=== PATIENT | male | born 1940 | race Hispanic/Latino ===

== ENCOUNTER 2017-11-17 21:25 | Inpatient (IN) | payer MEDICARE ==
[2017-11-17] MEDS ORDERED: ATROVENT IH ONE ×2 (21:44→21:58)
[2017-11-17] MEDS ORDERED: XOPENEX IH ONE ×2 (21:44→21:58)
[2017-11-17] MEDS ORDERED: NACL 0.9% 500 ML 500 ML IV ONE (21:46)
[2017-11-17] MEDS ORDERED: TORADOL IV ONE (21:57)
[2017-11-17] MEDS ORDERED: MAGNESIUM SULFATE 2GM/50ML 2 GM/50 ML BAG IV ONE (21:57)
[2017-11-17 22:09] LABS: Basophils # (Auto) 0.1 K/mm3 (0.0-0.1); Basophils % (Auto) 0.3 % (0.0-1.8); Eosinophils # (Auto) 0.1 K/mm3 (0.0-0.4); Eosinophils % (Auto) 0.5 % (0.0-4.3); Hemoglobin 13.7 gm/dl (11.8-15.2); Lymphocytes # (Auto) 1.2 K/mm3 (1.2-5.4); Lymphocytes % (Auto) 7.7 % (13.4-35.0); Monocytes # (Auto) 0.7 K/mm3 (0.0-0.8); Monocytes % (Auto) 4.8 % (0.0-7.3)
[2017-11-17] MEDS ORDERED: NACL 0.9% 1000 ML IV ONE (22:15)
[2017-11-17 22:20] LABS: INR 2.05 (0.87-1.13)
[2017-11-17 22:24] LABS: Alanine Aminotransferase 15 units/L (7-56); Albumin 3.7 g/dL (3.9-5); BUN/Creatinine Ratio 25; Blood Urea Nitrogen 15 mg/dL (9-20); Hemolysis Index 12
--- NOTE | 2017-11-17 22:27 | XRay Report ---
FINAL REPORT EXAM: XR ABD SERIES W CXR 1V HISTORY: MANA, WHEEZING, Sepsis TECHNIQUE: Frontal chest x-ray. Supine and upright views of abdomen. PRIORS: None. FINDINGS: Chest: No evidence of acute cardiopulmonary disease. Abdomen: Patient body habitus and difficulty breathing limit examination somewhat. Nonspecific bowel gas pattern without features suggestive of mechanical obstruction. No apparent pneumoperitoneum. No abnormal calcifications. Degenerative changes in the bilateral hip joints partially visualized. Remainder of visualized axial skeleton grossly unremarkable. IMPRESSION: 1. Nonspecific bowel gas pattern, which may represent adynamic ileus. Followup may be warranted.
[2017-11-17 22:30] LABS: Hematocrit 42.3 % (35.5-45.6); Mean Corpuscular HGB Conc 32 % (32-34); Mean Corpuscular Hemoglobin 29 pg (28-32); Mean Corpuscular Volume 89 fl (84-94); Platelet Count 380 K/mm3 (140-440); Red Blood Count 4.75 M/mm3 (3.65-5.03); Red Cell Distribution Width 14.5 % (13.2-15.2)
--- NOTE | 2017-11-17 22:32 | Emergency Department Report ---
ED Abdominal Pain HPI - General Chief Complaint: Dyspnea/Respdistress Stated Complaint: MANA Time Seen by Provider: 11/17/17 21:49 Source: patient, EMS Mode of arrival: Stretcher Limitations: Other - History of Present Illness Initial Comments: 77-year-old male with a past medical history of COPD (2 L home oxygen), questionable CHF, hypertension, previous PE currently on Coumadin and is also complaining of no bowel movement 2 days. He took MiraLAX without a specific complaints of right upper quadrant/lower chest pain radiating to the back since yesterday. It is intermittent with no aggravating or alleviating factors and moderate in intensity. Patient also complains of chronic hemorrhoids without reports of bleeding. Tonight patient developed wheezing and shortness breath. Low-grade temperature and tachycardia noted upon arrival. Patient denies fever at home, dysuria, or cough. PMD: [facility] affiliated patient apparently had an outpatient noncontrast CT of the chest last week evaluate to evaluate his pulmonary nodules. - Related Data Home Medications Medication Instructions Recorded Confirmed Last Taken ALBUTEROL Inhaler [Proair] 2 puff IH QID PRN 11/17/17 11/17/17 Unknown Aspirin [Aspirin BABY CHEW TAB] 162 mg PO QDAY 11/17/17 11/17/17 Unknown AtorvaSTATin [Lipitor] 20 mg PO QHS 11/17/17 11/17/17 Unknown Bethanechol [Urecholine] 25 mg PO Q8HR 11/17/17 11/17/17 Unknown Carvedilol [Coreg] 3.125 mg PO BID 11/17/17 11/17/17 Unknown Finasteride [Proscar] 5 mg PO QDAY 11/17/17 11/17/17 Unknown Fluticasone/Salmeterol [Advair 1 puff INHALATION BID 11/17/17 11/17/17 Unknown 500-50 Diskus] Furosemide [Lasix] 40 mg PO DAILY 11/17/17 11/17/17 Unknown Latanoprost [Xalatan] 2.5 ml OS DAILY 11/17/17 11/17/17 Unknown Linaclotide [Linzess] 290 mcg PO QDAY 11/17/17 11/17/17 Unknown Montelukast [Singulair] 10 mg PO QPM 11/17/17 11/17/17 Unknown Tamsulosin [Flomax] 0.4 mg PO QDAY 11/17/17 11/17/17 Unknown Tiotropium [place] [Spiriva] 2 puff IH DAILY 11/17/17 11/17/17 Unknown Valsartan [Diovan] 80 mg PO DAILY 11/17/17 11/17/17 Unknown Warfarin [Coumadin] 5 mg PO QDAY 11/17/17 11/17/17 Unknown Warfarin [Coumadin] 7.5 mg PO QDAY 11/17/17 11/17/17 Unknown Allergies Allergy/AdvReac Type Severity Reaction Status Date / Time No Known Allergies Allergy Verified 11/17/17 21:43 ED Review of Systems ROS: Stated complaint: MANA Other details as noted in HPI Comment: All other systems reviewed and negative ED Past Medical Hx - Past Medical History Previous Medical History?: Yes Hx Hypertension: Yes Hx Congestive Heart Failure: Yes Hx Pulmonary Embolism: Yes Hx COPD: Yes Additional medical history: Enlarged prostate - Social History Smoking Status: Never Smoker Substance Use Type: None - Medications Home Medications: Home Medications Medication Instructions Recorded Confirmed Last Taken Type ALBUTEROL Inhaler [Proair] 2 puff IH QID PRN 11/17/17 11/17/17 Unknown History Aspirin [Aspirin BABY CHEW TAB] 162 mg PO QDAY 11/17/17 11/17/17 Unknown History AtorvaSTATin [Lipitor] 20 mg PO QHS 11/17/17 11/17/17 Unknown History Bethanechol [Urecholine] 25 mg PO Q8HR 11/17/17 11/17/17 Unknown History Carvedilol [Coreg] 3.125 mg PO BID 11/17/17 11/17/17 Unknown History Finasteride [Proscar] 5 mg PO QDAY 11/17/17 11/17/17 Unknown History Fluticasone/Salmeterol [Advair 1 puff INHALATION BID 11/17/17 11/17/17 Unknown History 500-50 Diskus] Furosemide [Lasix] 40 mg PO DAILY 11/17/17 11/17/17 Unknown History Latanoprost [Xalatan] 2.5 ml OS DAILY 11/17/17 11/17/17 Unknown History Linaclotide [Linzess] 290 mcg PO QDAY 11/17/17 11/17/17 Unknown History Montelukast [Singulair] 10 mg PO QPM 11/17/17 11/17/17 Unknown History Tamsulosin [Flomax] 0.4 mg PO QDAY 11/17/17 11/17/17 Unknown History Tiotropium [place] [Spiriva] 2 puff IH DAILY 11/17/17 11/17/17 Unknown History Valsartan [Diovan] 80 mg PO DAILY 11/17/17 11/17/17 Unknown History Warfarin [Coumadin] 5 mg PO QDAY 11/17/17 11/17/17 Unknown History Warfarin [Coumadin] 7.5 mg PO QDAY 11/17/17 11/17/17 Unknown History ED Physical Exam - General Limitations: Other - Other Other exam information: General: No limitations, patient is alert in no acute distress Head exam: Atraumatic, normocephalic Eyes exam: Normal appearance, pupils equal reactive to light, extraocular movements intact ENT: Moist mucous membrane, normal oropharynx Neck exam: Normal inspection, full range of motion, no meningismus nontender Respiratory exam: Tachypnea, accessory muscle use, breathlessness, bilateral wheezing with fair air movement. Cardiovascular: Tachycardic regular rhythm Abdomen: Soft, nondistended, and nontender, with normal bowel sounds, no rebound, or guarding Extremity: Full range of motion, bilateral pitting lower extremity edema 1+ Back: Normal Inspection, full range of motion, no tenderness Neurologic: Alert, oriented x3, cranial nerves intact, no motor or sensory deficit Psychiatric: normal affect, normal mood Skin: Warm, dry, intact ED Course Vital Signs 11/17/17 11/17/17 11/17/17 21:31 21:34 21:46 Temperature 100.4 F H Pulse Rate 138 H 133 H Respiratory 30 H 18 Rate Blood Pressure 188/96 188/96 O2 Sat by Pulse 90 94 98 Oximetry 11/17/17 11/17/17 11/17/17 21:47 22:16 22:30 Temperature Pulse Rate 136 H 137 H 133 H Respiratory 32 H 24 13 Rate Blood Pressure 121/70 116/74 O2 Sat by Pulse 93 100 99 Oximetry 11/17/17 11/17/17 11/17/17 22:46 23:00 23:16 Temperature Pulse Rate 134 H 128 H 136 H Respiratory 20 13 16 Rate Blood Pressure 116/74 107/57 107/57 O2 Sat by Pulse 98 100 95 Oximetry 11/17/17 11/17/17 11/17/17 23:30 23:46 23:50 Temperature Pulse Rate 128 H 124 H 124 H Respiratory 15 13 16 Rate Blood Pressure 115/55 107/57 107/57 O2 Sat by Pulse 95 95 95 Oximetry 11/18/17 11/18/17 11/18/17 00:00 00:30 00:35 Temperature 98.8 F Pulse Rate 125 H 119 H Respiratory 17 18 Rate Blood Pressure 107/57 114/48 O2 Sat by Pulse 94 95 Oximetry 11/18/17 11/18/17 11/18/17 01:00 02:30 03:30 Temperature Pulse Rate 119 H 112 H 106 H Respiratory 13 11 L 14 Rate Blood Pressure 129/58 132/68 132/68 O2 Sat by Pulse 95 98 98 Oximetry 11/18/17 11/18/17 11/18/17 04:00 04:30 04:38 Temperature 98.4 F Pulse Rate 98 H 102 H Respiratory 25 H 23 Rate Blood Pressure 135/58 142/74 O2 Sat by Pulse 96 95 Oximetry ED Medical Decision Making - Lab Data Result diagrams: 11/17/17 21:52 11/17/17 21:52 Lab Results 11/17/17 11/17/17 11/17/17 Range/Units 20:39 21:52 21:52 WBC 15.4 H (4.5-11.0) K/mm3 RBC 4.75 (3.65-5.03) M/mm3 Hgb 13.7 (11.8-15.2) gm/dl Hct 42.3 (35.5-45.6) % MCV 89 (84-94) fl MCH 29 (28-32) pg MCHC 32 (32-34) % RDW 14.5 (13.2-15.2) % Plt Count 380 (140-440) K/mm3 Lymph % (Auto) 7.7 L (13.4-35.0) % Sharp % (Auto) 4.8 (0.0-7.3) % Eos % (Auto) 0.5 (0.0-4.3) % Baso % (Auto) 0.3 (0.0-1.8) % Lymph # 1.2 (1.2-5.4) K/mm3 Sharp # 0.7 (0.0-0.8) K/mm3 Eos # 0.1 (0.0-0.4) K/mm3 Baso # 0.1 (0.0-0.1) K/mm3 Seg Neutrophils % 86.7 H (40.0-70.0) % Seg Neutrophils # 13.4 H (1.8-7.7) K/mm3 PT 24.4 H (12.2-14.9) Sec. INR 2.05 H (0.87-1.13) VBG pH (7.320-7.420) Sodium (137-145) mmol/L Potassium (3.6-5.0) mmol/L Chloride (98-107) mmol/L Carbon Dioxide (22-30) mmol/L Anion Gap mmol/L BUN (9-20) mg/dL Creatinine (0.8-1.5) mg/dL Estimated GFR ml/min BUN/Creatinine Ratio % Glucose (75-100) mg/dL Lactic Acid (0.7-2.0) mmol/L Calcium (8.4-10.2) mg/dL Total Bilirubin (0.1-1.2) mg/dL AST (5-40) units/L ALT (7-56) units/L Alkaline Phosphatase (35-129) units/L Total Creatine Kinase (55-170) units/L CK-MB (CK-2) (0.0-4.0) ng/mL CK-MB (CK-2) Rel Index (0-4) Troponin T (0.00-0.029) ng/mL NT-Pro-B Natriuret Pep (0-900) pg/mL Total Protein (6.3-8.2) g/dL Albumin (3.9-5) g/dL Albumin/Globulin Ratio % Blood Type A POSITIVE Antibody Screen Negative 11/17/17 11/17/17 11/17/17 Range/Units 21:52 21:52 21:52 WBC (4.5-11.0) K/mm3 RBC (3.65-5.03) M/mm3 Hgb (11.8-15.2) gm/dl Hct (35.5-45.6) % MCV (84-94) fl MCH (28-32) pg MCHC (32-34) % RDW (13.2-15.2) % Plt Count (140-440) K/mm3 Lymph % (Auto) (13.4-35.0) % Sharp % (Auto) (0.0-7.3) % Eos % (Auto) (0.0-4.3) % Baso % (Auto) (0.0-1.8) % Lymph # (1.2-5.4) K/mm3 Sharp # (0.0-0.8) K/mm3 Eos # (0.0-0.4) K/mm3 Baso # (0.0-0.1) K/mm3 Seg Neutrophils % (40.0-70.0) % Seg Neutrophils # (1.8-7.7) K/mm3 PT (12.2-14.9) Sec. INR (0.87-1.13) VBG pH 7.330 (7.320-7.420) Sodium 137 (137-145) mmol/L Potassium 4.4 (3.6-5.0) mmol/L Chloride 95.7 L (98-107) mmol/L Carbon Dioxide 28 (22-30) mmol/L Anion Gap 18 mmol/L BUN 15 (9-20) mg/dL Creatinine 0.6 L (0.8-1.5) mg/dL Estimated GFR > 60 ml/min BUN/Creatinine Ratio 25 % Glucose 110 H (75-100) mg/dL Lactic Acid 2.00 (0.7-2.0) mmol/L Calcium 9.0 (8.4-10.2) mg/dL Total Bilirubin 0.50 (0.1-1.2) mg/dL AST 23 (5-40) units/L ALT 15 (7-56) units/L Alkaline Phosphatase 74 (35-129) units/L Total Creatine Kinase (55-170) units/L CK-MB (CK-2) (0.0-4.0) ng/mL CK-MB (CK-2) Rel Index (0-4) Troponin T (0.00-0.029) ng/mL NT-Pro-B Natriuret Pep (0-900) pg/mL Total Protein 7.1 (6.3-8.2) g/dL Albumin 3.7 L (3.9-5) g/dL Albumin/Globulin Ratio 1.1 % Blood Type Antibody Screen 11/17/17 11/17/17 11/18/17 Range/Units 21:56 23:28 03:18 WBC (4.5-11.0) K/mm3 RBC (3.65-5.03) M/mm3 Hgb (11.8-15.2) gm/dl Hct (35.5-45.6) % MCV (84-94) fl MCH (28-32) pg MCHC (32-34) % RDW (13.2-15.2) % Plt Count (140-440) K/mm3 Lymph % (Auto) (13.4-35.0) % Sharp % (Auto) (0.0-7.3) % Eos % (Auto) (0.0-4.3) % Baso % (Auto) (0.0-1.8) % Lymph # (1.2-5.4) K/mm3 Sharp # (0.0-0.8) K/mm3 Eos # (0.0-0.4) K/mm3 Baso # (0.0-0.1) K/mm3 Seg Neutrophils % (40.0-70.0) % Seg Neutrophils # (1.8-7.7) K/mm3 PT (12.2-14.9) Sec. INR (0.87-1.13) VBG pH (7.320-7.420) Sodium (137-145) mmol/L Potassium (3.6-5.0) mmol/L Chloride (98-107) mmol/L Carbon Dioxide (22-30) mmol/L Anion Gap mmol/L BUN (9-20) mg/dL Creatinine (0.8-1.5) mg/dL Estimated GFR ml/min BUN/Creatinine Ratio % Glucose (75-100) mg/dL Lactic Acid 2.30 H* 2.90 H* (0.7-2.0) mmol/L Calcium (8.4-10.2) mg/dL Total Bilirubin (0.1-1.2) mg/dL AST (5-40) units/L ALT (7-56) units/L Alkaline Phosphatase (35-129) units/L Total Creatine Kinase 94 (55-170) units/L CK-MB (CK-2) 2.6 (0.0-4.0) ng/mL CK-MB (CK-2) Rel Index 2.7 (0-4) Troponin T < 0.010 (0.00-0.029) ng/mL NT-Pro-B Natriuret Pep 83.51 (0-900) pg/mL Total Protein (6.3-8.2) g/dL Albumin (3.9-5) g/dL Albumin/Globulin Ratio % Blood Type Antibody Screen - EKG Data -: EKG Interpreted by Ct EKG shows normal: sinus rhythm, axis (qr) Rate: tachycardia (134) - Radiology Data Radiology results: report reviewed CT and chest: Emphysema. Patchy airspace disease in the medial aspect of the right upper lobe anteriorly. No evidence of pulmonary embolism, aortic dissection, or vascular congestion. CT abdomen and pelvis IV conscious: No acute process in the abdomen. Several small incidental lipomas within second and third portions of the duodenum without obstruction. Arthritic changes in the lumbar spine in both hip joints. - Medical Decision Making Constipation Abdomen was nontender on exam and patient points to the area of the right lower lateral rib cage radiating to her back as area of pain No acute findings on CT Patient complains of chronic hemorrhoids Acute COPD attack tonight After Solu-Medrol, magnesium, Xopenex, and Atrovent patient's breathing has dramatically improved. He was weaned down to 3 L of O2 down from 6 L upon initial presentation. CT angiogram negative for PE but n suggestive of patchy airspace disease and patient has a leukocytosis therefore Rocephin and azithromycin ordered Tachycardia Secondary to infection versus acute respiratory distress versus bronchodilators. She received 30 mL KG bolus saline as per sepsis protocol. Heart rate decreased to 99 just prior to admission. Lactic acid elevation Patient is therapeutic on his Coumadin with INR 2 - Differential Diagnosis constipation, pneumonia, bronchitis, asthma, TIA, sepsis Critical Care Time: No Critical care attestation.: If time is entered above; I have spent that time in minutes in the direct care of this critically ill patient, excluding procedure time. ED Disposition Clinical Impression: COPD exacerbation, Pulmonary infiltrate, Sinus tachycardia, Elevated lactic acid level, Anticoagulant long-term use Disposition: OP ADMIT IP TO THIS HOSP Is pt being admited?: Yes Condition: Stable Time of Disposition: 04:29 (Dr Rivas/hosp)
[2017-11-17 23:29] LABS: Creatine Kinase MB 2.6 ng/mL (0.0-4.0)
--- NOTE | 2017-11-18 03:04 | Cat Scan Report ---
FINAL REPORT EXAM: CT ANGIO CHEST HISTORY: tachy, hx of pe, sob TECHNIQUE: A CT angiogram was obtained following the intravenous injection of 100 cc of Omnipaque 350. Rotational, sagittal, and coronal MIP reconstructions were reviewed. FINDINGS: The lungs reveal severe emphysematous changes. There patchy airspace disease in the medial aspect of the right upper lobe anteriorly. The lungs are not overtly congested. Pleural fluid is not identified. There is additional scarring in the lingula. Scarring is also noted in the right lower lobe. There is no evidence of pulmonary embolus or aortic dissection. The thoracic aorta is normal in caliber. The heart size is normal. Pericardial fluid is not seen. There is no evidence of adenopathy. In the upper abdomen the adrenal glands are normal in size. Oral contrast is seen in the stomach. The skeletal structures reveal multilevel disc degeneration in the dorsal spine. At the thoracic inlet the thyroid gland appears normal. IMPRESSION: Emphysema. Patchy airspace disease in the medial aspect of the right upper lobe anteriorly. No evidence of pulmonary embolus, aortic dissection, or vascular congestion.
--- NOTE | 2017-11-18 03:20 | Cat Scan Report ---
FINAL REPORT EXAM: CT ABDOMEN PELVIS W CON HISTORY: constipation, abd discomfort TECHNIQUE: Routine axial imaging was obtained of the abdomen and pelvis following the intravenous injection of 100 cc of Omnipaque 350. Delayed imaging was obtained through the kidneys ureters and bladder. Sagittal and coronal reconstructions were reviewed. Oral contrast was also administered. FINDINGS: Imaging through the lung bases reveal scarring in the lingula and right lower lobe. The lungs are emphysematous. There are no localized infiltrates. The liver, gallbladder, biliary tree, pancreas, spleen, and adrenal glands appear normal. The kidneys enhance normally. There no evidence of stones or hydronephrosis. There is mild nonspecific perinephric stranding. There calcification of the abdominal aorta. The vasculatures otherwise enhance normally. There is several small fatty foci within the 2nd and 3rd portion of the duodenum compatible with incidental lipomas measuring 13.6 mm in diameter. There is no evidence of duodenal obstruction. The bowel loops are normal in caliber. The appendix is not enlarged. There is no evidence of free fluid or adenopathy. In the pelvis the prostate gland and bladder appear normal. The skeletal structures reveal multilevel disc degeneration in the lumbar spine. IMPRESSION: No acute process in the abdomen and pelvis. Emphysematous changes in both lung bases with scarring in the lingula and right lower lobe. Several small incidental lipomas within the 2nd and 3rd portions of the duodenum without obstruction. Arthritic changes in the lumbar spine and both hip joints.
[2017-11-18] MEDS ORDERED: ZITHROMAX 500 MG in NACL 0.9% 250ML 250 ML IV ONE (04:00)
[2017-11-18] MEDS ORDERED: ROCEPHIN/NS 1 GM/50 ML 1 GM/50 ML BAG IV ONE (04:00)
[2017-11-18] MEDS ORDERED: cefTRIAXone 1 GM in NACL 0.9% 20 ML IV ONE (04:30)
[2017-11-18] MEDS ORDERED: NORCO 5/325 PO ONE (04:47)
[2017-11-18] MEDS ORDERED: XOPENEX IH ONE (04:48)
[2017-11-18] MEDS ORDERED: ZOFRAN IV PRN (05:40)
--- NOTE | 2017-11-18 09:26 | History and Physical Report ---
History of Present Illness Date of examination: 11/18/17 Date of admission: 11/18/17 05:37 Chief complaint: COPD exercebation, Pneumonia Medications and Allergies Allergies Allergy/AdvReac Type Severity Reaction Status Date / Time No Known Allergies Allergy Verified 11/17/17 21:43 Home Medications Medication Instructions Recorded Confirmed Last Taken Type ALBUTEROL Inhaler [Proair] 2 puff IH QID PRN 11/17/17 11/17/17 Unknown History Aspirin [Aspirin BABY CHEW TAB] 162 mg PO QDAY 11/17/17 11/17/17 Unknown History AtorvaSTATin [Lipitor] 20 mg PO QHS 11/17/17 11/17/17 Unknown History Bethanechol [Urecholine] 25 mg PO Q8HR 11/17/17 11/17/17 Unknown History Carvedilol [Coreg] 3.125 mg PO BID 11/17/17 11/17/17 Unknown History Finasteride [Proscar] 5 mg PO QDAY 11/17/17 11/17/17 Unknown History Fluticasone/Salmeterol [Advair 1 puff INHALATION BID 11/17/17 11/17/17 Unknown History 500-50 Diskus] Furosemide [Lasix] 40 mg PO DAILY 11/17/17 11/17/17 Unknown History Latanoprost [Xalatan] 2.5 ml OS DAILY 11/17/17 11/17/17 Unknown History Linaclotide [Linzess] 290 mcg PO QDAY 11/17/17 11/17/17 Unknown History Montelukast [Singulair] 10 mg PO QPM 11/17/17 11/17/17 Unknown History Tamsulosin [Flomax] 0.4 mg PO QDAY 11/17/17 11/17/17 Unknown History Tiotropium [place] [Spiriva] 2 puff IH DAILY 11/17/17 11/17/17 Unknown History Valsartan [Diovan] 80 mg PO DAILY 11/17/17 11/17/17 Unknown History Warfarin [Coumadin] 5 mg PO QDAY 11/17/17 11/17/17 Unknown History Warfarin [Coumadin] 7.5 mg PO QDAY 11/17/17 11/17/17 Unknown History Active Meds: Active Medications Albuterol/Ipratropium (Duoneb *Not For Prn Use*) 1 ampul IH QIDRT LALO Ondansetron HCl (Zofran) 4 mg IV Q4H PRN PRN Reason: N/V IF NPO AND NO IV ACCESS Exam - Constitutional Vitals: Temp Pulse Resp BP Pulse Ox 98.4 F 109 H 22 151/76 94 11/18/17 04:38 11/18/17 06:30 11/18/17 06:30 11/18/17 06:30 11/18/17 06:30 Results - Labs CBC & Chem 7: 11/17/17 21:52 11/17/17 21:52 Labs: Abnormal lab results 11/17/17 11/17/17 11/17/17 Range/Units 21:52 21:52 21:52 WBC 15.4 H (4.5-11.0) K/mm3 Lymph % (Auto) 7.7 L (13.4-35.0) % Seg Neutrophils % 86.7 H (40.0-70.0) % Seg Neutrophils # 13.4 H (1.8-7.7) K/mm3 PT 24.4 H (12.2-14.9) Sec. INR 2.05 H (0.87-1.13) Chloride 95.7 L (98-107) mmol/L Creatinine 0.6 L (0.8-1.5) mg/dL Glucose 110 H (75-100) mg/dL Lactic Acid (0.7-2.0) mmol/L Albumin 3.7 L (3.9-5) g/dL 11/17/17 11/18/17 Range/Units 23:28 03:18 WBC (4.5-11.0) K/mm3 Lymph % (Auto) (13.4-35.0) % Seg Neutrophils % (40.0-70.0) % Seg Neutrophils # (1.8-7.7) K/mm3 PT (12.2-14.9) Sec. INR (0.87-1.13) Chloride (98-107) mmol/L Creatinine (0.8-1.5) mg/dL Glucose (75-100) mg/dL Lactic Acid 2.30 H* 2.90 H* (0.7-2.0) mmol/L Albumin (3.9-5) g/dL Assessment and Plan COPD exacerbation, Pneumonia Pulmonary infiltrate, Sinus tachycardia, Elevated lactic acid level, Anticoagulant long-term use Admit Xeponex, Atrovent, Brovana, oxygen iv solumedrol IV hydration Blood and sputum Cx iv Levaquin
[2017-11-18] MEDS: DUONEB *Not for PRN Use IH SCH ×3 (09:33→16:11)
[2017-11-18] MEDS ORDERED: NON-FORMULARY (Valsartan [Diovan] 80 MG) PO SCH (10:45)
[2017-11-18] MEDS ORDERED: ZITHROMAX 500 MG in NACL 0.9% 250ML 250 ML IV SCH (11:00)
[2017-11-18 12:25] LABS: Bacteria,Urine 1+ /HPF (Negative); Bilirubin,Urine NEG (Negative); Blood,Urine NEG (Negative); Color,Urine Yellow (Yellow); Mucus,Urine 3+ /HPF; Protein,Urine <15 mg/dL mg/dL (Negative); Urobilinogen,Urine < 2.0 mg/dL (<2.0)
[2017-11-18] MEDS: cefTRIAXone 1 GM in NACL 0.9% 20 ML IV SCH (12:30)
[2017-11-18] MEDS: BABY ASPIRIN PO SCH (12:30)
[2017-11-18] MEDS: FLOMAX PO SCH (12:30)
[2017-11-18] MEDS: PROSCAR PO SCH (12:30)
[2017-11-18] MEDS: DIOVAN PO SCH (12:31)
[2017-11-18] MEDS: LASIX PO SCH (12:38)
[2017-11-18] MEDS: COREG PO SCH ×2 (12:39→21:07)
[2017-11-18] MEDS: PROVENTIL IH SCH ×2 (13:02→16:12)
[2017-11-18] MEDS: BROVANA NEBU IH SCH ×2 (13:02→20:49)
[2017-11-18] MEDS: SPIRIVA IH SCH (13:03)
[2017-11-18] MEDS: PULMICORT IH SCH ×2 (13:05→20:49)
[2017-11-18] MEDS: URECHOLINE PO SCH ×2 (14:44→21:07)
[2017-11-18] MEDS: LATANOPROST 0.005% OS SCH (15:37)
[2017-11-18] MEDS: SINGULAIR PO SCH (18:45)
[2017-11-18] MEDS: LOVENOX SUB-Q SCH (21:07)
[2017-11-18] MEDS: TYLENOL PO PRN (21:08)
[2017-11-18] MEDS: D5NS 1,000 ML IV SCH (22:28)
[2017-11-19] MEDS: PROVENTIL IH SCH ×3 (00:38→16:50)
[2017-11-19] MEDS: TYLENOL PO PRN ×2 (02:00→22:53)
[2017-11-19] MEDS: URECHOLINE PO SCH ×3 (06:32→22:53)
[2017-11-19] MEDS: NON-FORMULARY (Linaclotide [Linzess] 290 MCG) PO SCH (06:32)
[2017-11-19] MEDS: D5NS 1,000 ML IV SCH ×2 (06:34→17:55)
--- NOTE | 2017-11-19 09:05 | Progress Note ---
Assessment and Plan COPD exacerbation, Pneumonia Pulmonary infiltrate, Sinus tachycardia, Elevated lactic acid level, Anticoagulant long-term use continue with Xeponex, Atrovent, Brovana, oxygen iv solumedrol IV hydration Blood and sputum Cx iv Levaquin Subjective Date of service: 11/19/17 Principal diagnosis: copd exercebation, pneumonia Interval history: stilll having shorntessof breath Objective - Constitutional Vitals: Vital Signs - 12hr 11/18/17 11/18/17 11/18/17 21:08 22:00 22:08 Temperature Pulse Rate Pulse Rate [ Anterior Bilateral Throughout] Respiratory 20 20 20 Rate Respiratory Rate [Anterior Bilateral Throughout] Respiratory 20 Rate [right abd pain] Blood Pressure O2 Sat by Pulse 94 Oximetry 11/18/17 11/19/17 11/19/17 22:17 02:00 02:30 Temperature 98.9 F Pulse Rate 77 Pulse Rate [ 92 H Anterior Bilateral Throughout] Respiratory 20 18 Rate Respiratory 18 Rate [Anterior Bilateral Throughout] Respiratory Rate [right abd pain] Blood Pressure 113/58 O2 Sat by Pulse 96 Oximetry 11/19/17 11/19/17 03:00 07:50 Temperature 98.6 F Pulse Rate 84 Pulse Rate [ Anterior Bilateral Throughout] Respiratory 20 20 Rate Respiratory Rate [Anterior Bilateral Throughout] Respiratory Rate [right abd pain] Blood Pressure 123/75 O2 Sat by Pulse 95 Oximetry General appearance: Present: no acute distress, well-nourished - EENT Eyes: PERRL, EOM intact - Neck Neck: supple, normal ROM - Respiratory Respiratory effort: normal Respiratory: bilateral: diminished - Cardiovascular Rhythm: regular Heart Sounds: Present: S1 & S2. Absent: gallop, rub Extremities: pulses intact, No edema, normal color, Full ROM - Gastrointestinal General gastrointestinal: Present: soft, non-tender, non-distended, normal bowel sounds - Genitourinary Male genitourinary: normal - Integumentary Integumentary: clear, warm, dry - Musculoskeletal Musculoskeletal: 1, strength equal bilaterally - Neurologic Neurologic: moves all extremities - Psychiatric Psychiatric: memory intact, appropriate mood/affect, intact judgment & insight - Labs CBC & Chem 7: 11/17/17 21:52 11/17/17 21:52 Labs: Abnormal lab results 11/18/17 Range/Units 11:28 Ur Specific [place] < 1.059 H (1.003-1.030)
[2017-11-19] MEDS: PULMICORT IH SCH ×2 (09:59→21:59)
[2017-11-19] MEDS: BROVANA NEBU IH SCH ×2 (10:00→21:58)
[2017-11-19] MEDS ORDERED: ZITHROMAX 500 MG in NACL 0.9% 250ML 250 ML IV SCH (10:00)
[2017-11-19] MEDS ORDERED: LASIX PO SCH (10:00)
--- NOTE | 2017-11-19 10:00 | XRay Report ---
Single view chest: History: Shortness of breath. Findings: Normal cardiomediastinal silhouette. Trachea is midline. Ill-defined density right upper lobe adjacent to the right hilum. Normal CP angles. Impression: Density superior aspect of right hilum probably secondary to pneumonitis. Correlate with CT findings.
[2017-11-19] MEDS: SPIRIVA IH SCH (10:52)
[2017-11-19] MEDS: FLOMAX PO SCH (11:25)
[2017-11-19] MEDS: BABY ASPIRIN PO SCH (11:25)
[2017-11-19] MEDS: COREG PO SCH ×2 (11:25→22:53)
[2017-11-19] MEDS: PROSCAR PO SCH (11:25)
[2017-11-19] MEDS: DIOVAN PO SCH (11:26)
[2017-11-19] MEDS: LATANOPROST 0.005% OS SCH (11:27)
[2017-11-19] MEDS ORDERED: CITRATE OF MAGNESIA PO PRN (11:30)
[2017-11-19] MEDS: cefTRIAXone 1 GM in NACL 0.9% 20 ML IV SCH (11:47)
[2017-11-19] MEDS: LASIX PO SCH (11:49)
[2017-11-19 12:09] LABS: Basophils % (Auto) 0.3 % (0.0-1.8); Eosinophils # (Auto) 0.1 K/mm3 (0.0-0.4); Eosinophils % (Auto) 0.8 % (0.0-4.3); Hematocrit 36.2 % (35.5-45.6); Hemoglobin 12.1 gm/dl (11.8-15.2); Lymphocytes # (Auto) 1.7 K/mm3 (1.2-5.4); Lymphocytes % (Auto) 11.9 % (13.4-35.0); Mean Corpuscular HGB Conc 34 % (32-34); Mean Corpuscular Hemoglobin 30 pg (28-32); Mean Corpuscular Volume 89 fl (84-94); Monocytes # (Auto) 1.1 K/mm3 (0.0-0.8); Monocytes % (Auto) 7.9 % (0.0-7.3); Platelet Count 279 K/mm3 (140-440); Red Blood Count 4.08 M/mm3 (3.65-5.03); Red Cell Distribution Width 14.5 % (13.2-15.2)
[2017-11-19 12:29] LABS: Alanine Aminotransferase 21 units/L (7-56); Albumin 3.3 g/dL (3.9-5); BUN/Creatinine Ratio 18; Blood Urea Nitrogen 9 mg/dL (9-20); Calcium 8.3 mg/dL (8.4-10.2); Hemolysis Index 2
[2017-11-19] MEDS: PROCTOSOL-HC PR SCH (15:36)
[2017-11-19] MEDS: SINGULAIR PO SCH (17:54)
[2017-11-19] MEDS: LOVENOX SUB-Q SCH (22:53)
[2017-11-20] MEDS: PROVENTIL IH SCH ×4 (03:20→20:27)
[2017-11-20 06:04] LABS: Basophils % (Auto) 0.4 % (0.0-1.8); Eosinophils # (Auto) 0.2 K/mm3 (0.0-0.4); Eosinophils % (Auto) 2.5 % (0.0-4.3); Hematocrit 35.4 % (35.5-45.6); Hemoglobin 11.5 gm/dl (11.8-15.2); Lymphocytes # (Auto) 1.2 K/mm3 (1.2-5.4); Lymphocytes % (Auto) 13.2 % (13.4-35.0); Mean Corpuscular HGB Conc 33 % (32-34); Mean Corpuscular Hemoglobin 29 pg (28-32); Mean Corpuscular Volume 90 fl (84-94); Monocytes # (Auto) 0.8 K/mm3 (0.0-0.8); Monocytes % (Auto) 8.9 % (0.0-7.3); Platelet Count 303 K/mm3 (140-440); Red Blood Count 3.95 M/mm3 (3.65-5.03); Red Cell Distribution Width 14.4 % (13.2-15.2)
[2017-11-20 06:35] LABS: Alanine Aminotransferase 20 units/L (7-56); Albumin 3.1 g/dL (3.9-5); BUN/Creatinine Ratio 12; Blood Urea Nitrogen 6 mg/dL (9-20); Hemolysis Index 13
[2017-11-20] MEDS: NON-FORMULARY (Linaclotide [Linzess] 290 MCG) PO SCH (06:54)
[2017-11-20] MEDS: URECHOLINE PO SCH ×3 (06:54→22:53)
[2017-11-20] MEDS: D5NS 1,000 ML IV SCH ×3 (06:55→22:53)
[2017-11-20] MEDS: TYLENOL PO PRN (07:23)
[2017-11-20] MEDS: BROVANA NEBU IH SCH ×2 (08:59→20:26)
[2017-11-20] MEDS: PULMICORT IH SCH ×2 (08:59→20:26)
[2017-11-20] MEDS: SPIRIVA IH SCH (09:00)
[2017-11-20] MEDS: cefTRIAXone 1 GM in NACL 0.9% 20 ML IV SCH (09:53)
[2017-11-20] MEDS: DIOVAN PO SCH (09:55)
[2017-11-20] MEDS: BABY ASPIRIN PO SCH (09:58)
[2017-11-20] MEDS: ZITHROMAX PO SCH (09:59)
[2017-11-20] MEDS: LASIX PO SCH (10:00)
[2017-11-20] MEDS: PROSCAR PO SCH (10:01)
[2017-11-20] MEDS: COREG PO SCH ×2 (10:01→22:55)
[2017-11-20] MEDS: FLOMAX PO SCH (10:02)
[2017-11-20] MEDS: LATANOPROST 0.005% OS SCH (10:02)
[2017-11-20] MEDS: PROCTOSOL-HC PR SCH (10:37)
[2017-11-20] MEDS ORDERED: DULCOLAX PR PRN (11:28)
--- NOTE | 2017-11-20 11:48 | Query- Dyspnea ---
Aristides Petersen Date:____11/20/2017 Office Automation Clerk/CDS:___[place] Phone#:__[phone] Exercise your independent professional judgment when responding to query. Questions asked do not imply a particular answer is desired or expected. We greatly appreciate your clarification on this issue. Clinical Documentation States: 77 Year old male was admitted on 11/17/2017 for wheezing and shortness breath. Low-grade temperature and tachycardia noted upon arrival. The IM (Dr. Davies) progress note on 11/19/2017 states "COPD exacerbation, Pneumonia Pulmonary infiltrate." Clinical Findings Show: AL (11/17): 138 RR (11/17): 32 O2 SAT (11/18): 79 Oxygen Delivery Method: Nasal Canal Oxygen Flow Rate 11/17: 6L/min 11/18: 3L/min Please clarify if the patient had any of the following conditions based on the above clinical findings: [x ] Respiratory Failure [ ] Acute [ x] Acute on Chronic [ ] Chronic [ ] Respiratory failure due to trauma [ ] Acute Respiratory Distress Syndrome [ ] Other: [ ] Unable to determine [ ] Comment/Explanation: Present on Admission: [ x] Yes (Y) [ ] Clinically undeterminable (W) [ ] No (N) Please also document response in your Progress Notes and/or Discharge Summary and indicate if the condition was present on admission. MARIO
--- NOTE | 2017-11-20 12:05 | Query-Infection ---
Dear __Wendy Date:___11/20/2017 Educational Technician/CDS:__Lima Phone#:__[phone] Exercise your independent professional judgment when responding to this query. Questions asked do not imply a particular answer is desired or expected. We greatly appreciate your clarification on this issue. Clinical Documentation States: 77 Year old male was admitted on 11/17/2017 for wheezing and shortness breath. Low-grade temperature and tachycardia noted upon arrival. The IM (Dr. Davies) progress note on 11/19/2017 states "COPD exacerbation, Pneumonia Pulmonary infiltrate." Clinical findings show: (please check applicable parameters) NE (11/17): 138 RR (11/17): 32 WBC (11/17): 15.4 Temp (11/17): 100.4 Infection, known /suspected, with some of the following indicators; Specify the infection: 3 General parameters [X] Fever (core temp >38.30C or 100.40F) [ ] Hypothermia (core temp <36C) [X] Heart rate >90 bpm [X] Tachypnea: >20 bpm or pCO2 < 32 mmHg [ ] Altered mental status [ ] Significant edema / +ve fluid balance (>20 ml/kg 24 h) [ ] Hyperglycemia (Bl. glucose >110 mg/dl) w/o diabetes Inflammatory parameters [X] Leukocytosis (white blood cell count >12,000/l) [ ] Leukopenia (white blood cell count <4,000/l) [ ] Bandemia (immature WBC > 10%) [ ] Leucocyte Left Shift [ ] Plasma procalcitonin>2 SD above the normal value Hemodynamic and tissue perfusion parameters [ ] Arterial hypotension(SBP <90 mmHg, MAP <70 mmHg,or a SBP drop >40 mmHg in adults) [ ] Hyperlactatemia (>3 mmol/l) [ ] Anion Gap (> 11mEG/l) [ ] Decreased capillary refill or mottling Organ dysfunction parameters [ ] Arterial hypoxemia (PaO2/FIO2 <300) [ ] Creatinine increase =0.5 mg/dl [ ] Acute oliguria (urine output <0.5 ml | kg |h or 45 mM/l for at least 2 hrs) [ ] Coagulation abnormalities (INR >1.5 or activated partial thromboplastin time >60 s) [ ] Ileus (absent micky wel sounds) [ ] Thrombocytopenia (platelet count <100,000/l) [ ] Hyperbilirubinemia (plasma total bilirubin >4 mg/dl) According to the clinical indications above, can Bacteremia be further specified? If so, please indicate below and in your Progress Notes and/ or Discharge Summary. Indicate if the condition was present on admission. PHYSICIAN RESPONSE: [ x] Sepsis [ ] Severe Sepsis [ ] Septic Shock [ ] Septicemia [ ] Sepsis now resolved [ ] SIRS due to non-infectious cause with organ dysfunction [ ] SIRS due to non-infectious cause without organ dysfunction [ ] Other: [ ] Comment/Explanation: Present on Admission: [ x] Yes (Y) [ ] Clinically undeterminable (W) [ ] No (N) [ ] Ruled Out Please also document response in your Progress Notes and/or Discharge Summary and indicate if the condition was present on admission Notes: SIRS/ SIRS WITH ORGAN DYSFUNCTION Systemic inflammatory response syndrome (SIRS) generally refers to the systemic response to trauma/sun or other insult such as Acute Myocardial Infarction, Acute Pancreatitis, and Major Surgery with symptoms including fever, tachycardia , tachypnea, and leukocytosis (1). BACTEREMIA Presence of viable bacteria in the circulating blood (2). This term is reserved for patients that do not manifest above SIRS response. SEPTICEMIA Generally refers to a systemic disease associated with the presence of pathological microorganisms or toxins in the blood, which can include bacteria, viruses, fungi or other organisms (1). SEPSIS Generally refers to SIRS due infection (1). SEVERE SEPSIS Generally refers to sepsis associated with acute organ dysfunction (1). SEPTIC SHOCK Generally refers to circulatory failure associated with severe sepsis (2), and defined as hypotension or hypoperfusion despite adequate fluid resuscitation (1 hour) (3). REFERENCES: 1. [employer]/Society of Critical Care Medicine Consensus Conference. Definitions for sepsis and organ failure and guidelines for the use of innovative therapies in sepsis. Critical Care Med 1992;20:864 - 74. 2. Sergio arredondo MM, Mitul MP, Raudel BHATTI, Cyrus E, Sathya D, Josue D, Yoon J, Dexter SM , Stephen JL, Rosa G; International Sepsis Definitions Conference. 2001 SCCM/ESICM/ACCP/ATS/SIS International Sepsis Definitions Conference. Intensive Care Med. 2002 Apr;29(4):530-8. Epub 2002Oct 01. Review. PubMed PMID:[id number] 3. ICD-9-CM Official Guidelines for Coding and Reporting 4. Medscape Drugs, Diseases and Procedures references 5. [employer] Textbook of Internal Medicine. 18th Edition MTDD
[2017-11-20] MEDS: MIRALAX 3350 PO SCH ×2 (12:41→22:54)
--- NOTE | 2017-11-20 13:13 | Progress Note ---
Assessment and Plan Assessment and plan: Constipation - Patient said no bowl movement for the last 5 days and his abdomen is distended - On miralax - GI consulted COPD - continue current medication regimen - patient is breathing well Pneumonis - Continue with zithromax and ceftriaxone Hypertension - Controlled - Continue current medication regimen DVT prophylaxis - on lovenox Disposition - Patient will be discharged after constipation resolved History Interval history: Patient was seen and evaluated this morning, patient's main complaint is constipation, patient has overflow diarrhea, shortness of breath subsided. Hospitalist Physical - Physical exam Narrative exam: Not in cardiopulmonary distress. The patient is obese. Vital signs as documented. Head exam is unremarkable. No scleral icterus . Neck is without jugular venous distension, thyromegaly, or carotid bruits. Lungs are clear to auscultation. Cardiac exam reveals regular rate and Rhythm. Abdominal exam reveals normal bowel sounds, no masses, no organomegaly and no aortic enlargement. Extremities are nonedematous and both femoral and pedal pulses are normal. 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 No focal weakness. - Constitutional Vitals: Temp Pulse Resp BP Pulse Ox 98.6 F 80 20 138/67 96 11/20/17 02:20 11/20/17 10:44 11/20/17 10:44 11/20/17 09:55 11/20/17 09:03 General appearance: Present: no acute distress, well-nourished Results - Labs CBC & Chem 7: 11/20/17 05:28 11/20/17 05:28 Labs: Laboratory Last Values WBC 9.4 K/mm3 (4.5-11.0) 11/20/17 05:28 RBC 3.95 M/mm3 (3.65-5.03) 11/20/17 05:28 Hgb 11.5 gm/dl (11.8-15.2) L 11/20/17 05:28 Hct 35.4 % (35.5-45.6) L 11/20/17 05:28 MCV 90 fl (84-94) 11/20/17 05:28 MCH 29 pg (28-32) 11/20/17 05:28 MCHC 33 % (32-34) 11/20/17 05:28 RDW 14.4 % (13.2-15.2) 11/20/17 05:28 Plt Count 303 K/mm3 (140-440) 11/20/17 05:28 Lymph % (Auto) 13.2 % (13.4-35.0) L 11/20/17 05:28 [place] % (Auto) 8.9 % (0.0-7.3) H 11/20/17 05:28 Eos % (Auto) 2.5 % (0.0-4.3) 11/20/17 05:28 Baso % (Auto) 0.4 % (0.0-1.8) 11/20/17 05:28 Lymph # 1.2 K/mm3 (1.2-5.4) 11/20/17 05:28 [place] # 0.8 K/mm3 (0.0-0.8) 11/20/17 05:28 Eos # 0.2 K/mm3 (0.0-0.4) 11/20/17 05:28 Baso # 0.0 K/mm3 (0.0-0.1) 11/20/17 05:28 Seg Neutrophils % 75.0 % (40.0-70.0) H 11/20/17 05:28 Seg Neutrophils # 7.0 K/mm3 (1.8-7.7) 11/20/17 05:28 PT 24.4 Sec. (12.2-14.9) H 11/17/17 21:52 INR 2.05 (0.87-1.13) H 11/17/17 21:52 VBG pH 7.330 (7.320-7.420) 11/17/17 21:52 Sodium 139 mmol/L (137-145) 11/20/17 05:28 Potassium 4.2 mmol/L (3.6-5.0) 11/20/17 05:28 Chloride 103.6 mmol/L (98-107) 11/20/17 05:28 Carbon Dioxide 27 mmol/L (22-30) 11/20/17 05:28 Anion Gap 13 mmol/L 11/20/17 05:28 BUN 6 mg/dL (9-20) L 11/20/17 05:28 Creatinine 0.5 mg/dL (0.8-1.5) L 11/20/17 05:28 Estimated GFR > 60 ml/min 11/20/17 05:28 BUN/Creatinine Ratio 12 % 11/20/17 05:28 Glucose 112 mg/dL (75-100) H 11/20/17 05:28 Lactic Acid 1.60 mmol/L (0.7-2.0) 11/18/17 05:34 Calcium 8.0 mg/dL (8.4-10.2) L 11/20/17 05:28 Total Bilirubin 0.60 mg/dL (0.1-1.2) 11/20/17 05:28 AST 20 units/L (5-40) 11/20/17 05:28 ALT 20 units/L (7-56) 11/20/17 05:28 Alkaline Phosphatase 65 units/L (35-129) 11/20/17 05:28 Total Creatine Kinase 94 units/L (55-170) 11/17/17 21:56 CK-MB (CK-2) 2.6 ng/mL (0.0-4.0) 11/17/17 21:56 CK-MB (CK-2) Rel Index 2.7 (0-4) 11/17/17 21:56 Troponin T < 0.010 ng/mL (0.00-0.029) 11/17/17 21:56 NT-Pro-B Natriuret Pep 83.51 pg/mL (0-900) 11/17/17 21:56 Total Protein 5.4 g/dL (6.3-8.2) L 11/20/17 05:28 Albumin 3.1 g/dL (3.9-5) L 11/20/17 05:28 Albumin/Globulin Ratio 1.3 % 11/20/17 05:28 Urine Color Yellow (Yellow) 11/18/17 11:28 Urine Turbidity Clear (Clear) 11/18/17 11:28 Urine pH 5.0 (5.0-7.0) 11/18/17 11:28 Ur Specific [place] < 1.059 (1.003-1.030) H 11/18/17 11:28 Urine Protein <15 mg/dl mg/dL (Negative) 11/18/17 11:28 Urine Glucose (UA) Neg mg/dL (Negative) 11/18/17 11:28 Urine Ketones Neg mg/dL (Negative) 11/18/17 11:28 Urine Blood Neg (Negative) 11/18/17 11:28 Urine Nitrite Neg (Negative) 11/18/17 11:28 Urine Bilirubin Neg (Negative) 11/18/17 11:28 Urine Urobilinogen < 2.0 mg/dL (<2.0) 11/18/17 11:28 Ur Leukocyte Esterase Neg (Negative) 11/18/17 11:28 Urine WBC (Auto) 1.0 /HPF (0.0-6.0) 11/18/17 11:28 Urine RBC (Auto) 2.0 /HPF (0.0-6.0) 11/18/17 11:28 Urine Bacteria (Auto) 1+ /HPF (Negative) 11/18/17 11:28 Urine Mucus 3+ /HPF 11/18/17 11:28 Blood Type A POSITIVE 11/17/17 20:39 Antibody Screen Negative 11/17/17 20:39
[2017-11-20] MEDS: SINGULAIR PO SCH (18:35)
[2017-11-20] MEDS ORDERED: FLEET PR ONE (19:52)
[2017-11-20] MEDS ORDERED: LATANOPROST 0.005% OU SCH (22:00)
[2017-11-20] MEDS: LOVENOX SUB-Q SCH (22:55)
--- NOTE | 2017-11-21 00:42 | Consultation ---
REFERRING PHYSICIAN: Power Okeefe MD INDICATION: Constipation. HISTORY OF PRESENT ILLNESS: The patient is a 77-year-old white male being seen by GI for constipation. The patient had presented to the Emergency Room with complaints of shortness of breath. The patient subsequently was evaluated. The patient had had some shortness of breath. The patient subsequently had x-rays and further evaluation and was diagnosed with pneumonia and COPD exacerbation and admitted there. The patient reports he has had no bowel movements for the last 5 days. He reports he has been on MiraLax. He denies any diet or medication changes. Denies any bloody stools. Denies any weight loss. He is unsure as to when his last colonoscopy was. Denies any other specific GI problems or complaints. PAST MEDICAL HISTORY: Include COPD, CHF, hypertension, PE, on Coumadin. MEDICATIONS: See chart. ALLERGIES: No known drug allergies. SOCIAL HISTORY: Denies alcohol, tobacco, IV drug abuse. FAMILY HISTORY: Negative for colon cancer. REVIEW OF SYSTEMS: GENERAL: Reports weakness. HEENT: denies visual complaints. PULMONARY: Reports some shortness of breath. CARDIOVASCULAR: No chest pain. GASTROINTESTINAL: Reports constipation and some abdominal pain. All points of 13-point review of systems otherwise negative. PHYSICAL EXAMINATION: VITAL SIGNS: Temperature of 97.6, pulse 76, respirations 18, blood pressure 146/70. GENERAL: Fairly nourished, slightly obese white man in no acute distress. HEENT: Pupils equal, round, and reactive. PULMONARY: Rhonchi. CARDIOVASCULAR: Regular rhythm. Normal S1, S2. ABDOMEN: Positive bowel sounds, soft. SKIN: No obvious rashes. LABORATORY DATA: Pertinent for white count of 9.4, hemoglobin and hematocrit 11.5 and 35.4, platelet count of 303. Chem-7 within normal limits. LFTs within normal limits. CT scan of abdomen and pelvis showed no significant GI pathology. Chest CT showed emphysema. Abdominal x-ray raised the possibility of mild adynamic ileus. ASSESSMENT AND PLAN: A 77-year-old male admitted with chronic obstructive pulmonary disease exacerbation with possible pneumonia, now reports no bowel movement for 5 days. When I was in the patient's room, he was actually having a bowel movement. He reports he has had no recent diet or medication changes. Management as noted below: PLAN: 1. MiraLax 17 grams p.o. b.i.d. 2. High fiber diet. 3. Fleet enema tonight. 4. Check KUB in a.m. 5. No plans for colonoscopy or intervention from a GI standpoint otherwise at this time. JOB# [id number] DIVYA/STEPH MARTIN
[2017-11-21 05:29] LABS: Alanine Aminotransferase 18 units/L (7-56); Albumin 2.9 g/dL (3.9-5); BUN/Creatinine Ratio 10; Blood Urea Nitrogen 5 mg/dL (9-20); Calcium 7.7 mg/dL (8.4-10.2); Hemolysis Index 25
[2017-11-21 05:40] LABS: Basophils # (Auto) 0.1 K/mm3 (0.0-0.1); Basophils % (Auto) 0.8 % (0.0-1.8); Eosinophils # (Auto) 0.2 K/mm3 (0.0-0.4); Eosinophils % (Auto) 2.7 % (0.0-4.3); Hematocrit 33.2 % (35.5-45.6); Hemoglobin 11.2 gm/dl (11.8-15.2); Lymphocytes # (Auto) 1.1 K/mm3 (1.2-5.4); Lymphocytes % (Auto) 13.6 % (13.4-35.0); Mean Corpuscular HGB Conc 34 % (32-34); Mean Corpuscular Hemoglobin 30 pg (28-32); Mean Corpuscular Volume 88 fl (84-94); Monocytes # (Auto) 0.7 K/mm3 (0.0-0.8); Monocytes % (Auto) 9.2 % (0.0-7.3); Platelet Count 311 K/mm3 (140-440); Red Blood Count 3.76 M/mm3 (3.65-5.03); Red Cell Distribution Width 14.3 % (13.2-15.2)
[2017-11-21] MEDS: TYLENOL PO PRN (07:41)
[2017-11-21] MEDS: SPIRIVA IH SCH ×2 (07:44→15:22)
[2017-11-21] MEDS: PULMICORT IH SCH ×2 (07:44→20:02)
[2017-11-21] MEDS: BROVANA NEBU IH SCH ×2 (07:45→20:01)
[2017-11-21] MEDS: PROVENTIL IH SCH ×3 (07:46→20:01)
--- NOTE | 2017-11-21 09:33 | XRay Report ---
Single view abdomen: History: Rule out ileus. Findings: Moderate amount of air in colon with minimal air in duodenum as identified in the stomach. No radiopaque calculus or abnormal calcification. Impression: Probable early ileus.
[2017-11-21] MEDS: PROCTOSOL-HC PR SCH (10:30)
[2017-11-21] MEDS: MIRALAX 3350 PO SCH ×2 (10:30→23:12)
[2017-11-21] MEDS: cefTRIAXone 1 GM in NACL 0.9% 20 ML IV SCH (10:31)
[2017-11-21] MEDS: FLOMAX PO SCH (10:32)
[2017-11-21] MEDS: URECHOLINE PO SCH ×2 (10:33→13:54)
[2017-11-21] MEDS: BABY ASPIRIN PO SCH (10:33)
[2017-11-21] MEDS: COREG PO SCH ×2 (10:33→23:11)
[2017-11-21] MEDS: PROSCAR PO SCH (10:33)
[2017-11-21] MEDS: LASIX PO SCH (10:33)
[2017-11-21] MEDS: ZITHROMAX PO SCH (10:34)
[2017-11-21] MEDS: DIOVAN PO SCH (10:34)
[2017-11-21] MEDS: NON-FORMULARY (Linaclotide [Linzess] 290 MCG) PO SCH (10:40)
--- NOTE | 2017-11-21 14:35 | Progress Note ---
Assessment and Plan Assessment and plan: Constipation - Patient said no bowl movement for the last 5 days and his abdomen is distended - On miralax - GI consulted - Abdominal series showed constipation COPD - continue current medication regimen - patient is breathing well Pneumonis - Continue with zithromax and ceftriaxone Hypertension - Controlled - Continue current medication regimen DVT prophylaxis - on lovenox Disposition - Patient will be discharged after GI cleared him History Interval history: Patient was seen and evaluated this morning, patient has bowel movement, GI saw him yesterday and ordered KUB which showed ileus. Hospitalist Physical - Physical exam Narrative exam: Not in cardiopulmonary distress. The patient is obese. Vital signs as documented. Head exam is unremarkable. No scleral icterus . Neck is without jugular venous distension, thyromegaly, or carotid bruits. Lungs are clear to auscultation. Cardiac exam reveals regular rate and Rhythm. Abdominal exam reveals normal bowel sounds, obese and tense abdomen. Extremities are nonedematous and both femoral and pedal pulses are normal. 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 No focal weakness. - Constitutional Vitals: Temp Pulse Resp BP Pulse Ox 97.4 F L 74 20 139/66 95 11/21/17 13:30 11/21/17 13:30 11/21/17 13:30 11/21/17 13:30 11/21/17 13:30 General appearance: Present: no acute distress, well-nourished Results - Labs CBC & Chem 7: 11/21/17 04:32 11/21/17 04:32 Labs: Laboratory Last Values WBC 7.9 K/mm3 (4.5-11.0) 11/21/17 04:32 RBC 3.76 M/mm3 (3.65-5.03) 11/21/17 04:32 Hgb 11.2 gm/dl (11.8-15.2) L 11/21/17 04:32 Hct 33.2 % (35.5-45.6) L 11/21/17 04:32 MCV 88 fl (84-94) 11/21/17 04:32 MCH 30 pg (28-32) 11/21/17 04:32 MCHC 34 % (32-34) 11/21/17 04:32 RDW 14.3 % (13.2-15.2) 11/21/17 04:32 Plt Count 311 K/mm3 (140-440) 11/21/17 04:32 Lymph % (Auto) 13.6 % (13.4-35.0) 11/21/17 04:32 [place] % (Auto) 9.2 % (0.0-7.3) H 11/21/17 04:32 Eos % (Auto) 2.7 % (0.0-4.3) 11/21/17 04:32 Baso % (Auto) 0.8 % (0.0-1.8) 11/21/17 04:32 Lymph # 1.1 K/mm3 (1.2-5.4) L 11/21/17 04:32 [place] # 0.7 K/mm3 (0.0-0.8) 11/21/17 04:32 Eos # 0.2 K/mm3 (0.0-0.4) 11/21/17 04:32 Baso # 0.1 K/mm3 (0.0-0.1) 11/21/17 04:32 Seg Neutrophils % 73.7 % (40.0-70.0) H 11/21/17 04:32 Seg Neutrophils # 5.9 K/mm3 (1.8-7.7) 11/21/17 04:32 PT 24.4 Sec. (12.2-14.9) H 11/17/17 21:52 INR 2.05 (0.87-1.13) H 11/17/17 21:52 VBG pH 7.330 (7.320-7.420) 11/17/17 21:52 Sodium 138 mmol/L (137-145) 11/21/17 04:32 Potassium 3.9 mmol/L (3.6-5.0) 11/21/17 04:32 Chloride 98.7 mmol/L (98-107) 11/21/17 04:32 Carbon Dioxide 27 mmol/L (22-30) 11/21/17 04:32 Anion Gap 16 mmol/L 11/21/17 04:32 BUN 5 mg/dL (9-20) L 11/21/17 04:32 Creatinine 0.5 mg/dL (0.8-1.5) L 11/21/17 04:32 Estimated GFR > 60 ml/min 11/21/17 04:32 BUN/Creatinine Ratio 10 % 11/21/17 04:32 Glucose 109 mg/dL (75-100) H 11/21/17 04:32 Lactic Acid 1.60 mmol/L (0.7-2.0) 11/18/17 05:34 Calcium 7.7 mg/dL (8.4-10.2) L 11/21/17 04:32 Total Bilirubin 0.80 mg/dL (0.1-1.2) 11/21/17 04:32 AST 16 units/L (5-40) 11/21/17 04:32 ALT 18 units/L (7-56) 11/21/17 04:32 Alkaline Phosphatase 60 units/L (35-129) 11/21/17 04:32 Total Creatine Kinase 94 units/L (55-170) 11/17/17 21:56 CK-MB (CK-2) 2.6 ng/mL (0.0-4.0) 11/17/17 21:56 CK-MB (CK-2) Rel Index 2.7 (0-4) 11/17/17 21:56 Troponin T < 0.010 ng/mL (0.00-0.029) 11/17/17 21:56 NT-Pro-B Natriuret Pep 83.51 pg/mL (0-900) 11/17/17 21:56 Total Protein 5.0 g/dL (6.3-8.2) L 11/21/17 04:32 Albumin 2.9 g/dL (3.9-5) L 11/21/17 04:32 Albumin/Globulin Ratio 1.4 % 11/21/17 04:32 Urine Color Yellow (Yellow) 11/18/17 11:28 Urine Turbidity Clear (Clear) 11/18/17 11:28 Urine pH 5.0 (5.0-7.0) 11/18/17 11:28 Ur Specific [place] < 1.059 (1.003-1.030) H 11/18/17 11:28 Urine Protein <15 mg/dl mg/dL (Negative) 11/18/17 11:28 Urine Glucose (UA) Neg mg/dL (Negative) 11/18/17 11:28 Urine Ketones Neg mg/dL (Negative) 11/18/17 11:28 Urine Blood Neg (Negative) 11/18/17 11:28 Urine Nitrite Neg (Negative) 11/18/17 11:28 Urine Bilirubin Neg (Negative) 11/18/17 11:28 Urine Urobilinogen < 2.0 mg/dL (<2.0) 11/18/17 11:28 Ur Leukocyte Esterase Neg (Negative) 11/18/17 11:28 Urine WBC (Auto) 1.0 /HPF (0.0-6.0) 11/18/17 11:28 Urine RBC (Auto) 2.0 /HPF (0.0-6.0) 11/18/17 11:28 Urine Bacteria (Auto) 1+ /HPF (Negative) 11/18/17 11:28 Urine Mucus 3+ /HPF 11/18/17 11:28 Blood Type A POSITIVE 11/17/17 20:39 Antibody Screen Negative 11/17/17 20:39
[2017-11-21] MEDS: SINGULAIR PO SCH (17:27)
--- NOTE | 2017-11-21 17:39 | Gastroenterology Progress Note ---
Assessment and Plan GI: pt w/ recent constipation now with signs improving - pt now reports some loose stools - KUB w/ sign ileus - pt overall improved, tolerating regular diet - if stable in am ok to d/c from GI standpoint - will follow for now Subjective Date of service: 11/21/17 Principal diagnosis: copd exercebation, pneumonia Interval history: pt reports some loose stool. Reports feels like constipation improved, abdominal discomfort better Objective - Constitutional Vitals: Temp Pulse Resp BP Pulse Ox 97.4 F L 78 20 139/66 95 11/21/17 13:30 11/21/17 15:32 11/21/17 15:32 11/21/17 13:30 11/21/17 13:30 General appearance: no acute distress - Respiratory Respiratory: bilateral: CTA - Cardiovascular Rhythm: regular Heart Sounds: Present: S1 & S2 - Gastrointestinal General gastrointestinal: Present: soft, non-tender, non-distended - Labs CBC & Chem 7: 11/21/17 04:32 11/21/17 04:32 Labs: Laboratory Results - last 24 hr 11/21/17 11/21/17 04:32 04:32 WBC 7.9 RBC 3.76 Hgb 11.2 L Hct 33.2 L MCV 88 MCH 30 MCHC 34 RDW 14.3 Plt Count 311 Lymph % (Auto) 13.6 [place] % (Auto) 9.2 H Eos % (Auto) 2.7 Baso % (Auto) 0.8 Lymph # 1.1 L [place] # 0.7 Eos # 0.2 Baso # 0.1 Seg Neutrophils % 73.7 H Seg Neutrophils # 5.9 Sodium 138 Potassium 3.9 Chloride 98.7 Carbon Dioxide 27 Anion Gap 16 BUN 5 L Creatinine 0.5 L Estimated GFR > 60 BUN/Creatinine Ratio 10 Glucose 109 H Calcium 7.7 L Total Bilirubin 0.80 AST 16 ALT 18 Alkaline Phosphatase 60 Total Protein 5.0 L Albumin 2.9 L Albumin/Globulin Ratio 1.4
[2017-11-21] MEDS: LOVENOX SUB-Q SCH (23:11)
[2017-11-22] MEDS: TYLENOL PO PRN (04:58)
[2017-11-22] MEDS: URECHOLINE PO SCH ×2 (04:59→13:54)
[2017-11-22 05:01] LABS: Basophils % (Auto) 0.6 % (0.0-1.8); Eosinophils # (Auto) 0.3 K/mm3 (0.0-0.4); Eosinophils % (Auto) 3.3 % (0.0-4.3); Hematocrit 35.9 % (35.5-45.6); Hemoglobin 12.3 gm/dl (11.8-15.2); Lymphocytes # (Auto) 1.3 K/mm3 (1.2-5.4); Mean Corpuscular HGB Conc 34 % (32-34); Mean Corpuscular Hemoglobin 30 pg (28-32); Mean Corpuscular Volume 87 fl (84-94); Monocytes # (Auto) 0.8 K/mm3 (0.0-0.8); Monocytes % (Auto) 9.7 % (0.0-7.3); Platelet Count 353 K/mm3 (140-440); Red Blood Count 4.14 M/mm3 (3.65-5.03); Red Cell Distribution Width 14.1 % (13.2-15.2)
[2017-11-22 05:23] LABS: Alanine Aminotransferase 20 units/L (7-56); Albumin 3.2 g/dL (3.9-5); BUN/Creatinine Ratio 12; Blood Urea Nitrogen 6 mg/dL (9-20); Calcium 8.4 mg/dL (8.4-10.2); Hemolysis Index 8
[2017-11-22] MEDS: BROVANA NEBU IH SCH (07:38)
[2017-11-22] MEDS: SPIRIVA IH SCH ×2 (07:39→11:16)
[2017-11-22] MEDS: PULMICORT IH SCH (07:39)
[2017-11-22] MEDS: DIOVAN PO SCH (10:21)
[2017-11-22] MEDS: BABY ASPIRIN PO SCH (10:24)
[2017-11-22] MEDS: COREG PO SCH (10:24)
[2017-11-22] MEDS: LASIX PO SCH (10:24)
[2017-11-22] MEDS: FLOMAX PO SCH (10:25)
[2017-11-22] MEDS: PROSCAR PO SCH (10:25)
[2017-11-22] MEDS: cefTRIAXone 1 GM in NACL 0.9% 20 ML IV SCH (10:25)
[2017-11-22] MEDS: ZITHROMAX PO SCH (10:26)
[2017-11-22] MEDS: PROCTOSOL-HC PR SCH (10:29)
[2017-11-22] MEDS: MIRALAX 3350 PO SCH (10:55)
[2017-11-22] MEDS: PROVENTIL IH SCH ×2 (11:16→13:36)
[2017-11-22] MEDS ORDERED: SPIRIVA IH SCH (11:17)
--- NOTE | 2017-11-22 12:27 | Discharge Summary ---
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 The patient is obese. Vital signs as documented. Head exam is unremarkable. No scleral icterus . Neck is without jugular venous distension, thyromegaly, or carotid bruits. Lungs are clear to auscultation. Cardiac exam reveals regular rate and Rhythm. Abdominal exam reveals normal bowel sounds, obese and tense abdomen. Extremities are nonedematous and both femoral and pedal pulses are normal. 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 No focal weakness. - Constitutional Vitals: Temp Pulse Resp BP Pulse Ox 97.8 F 78 20 143/69 95 11/22/17 07:59 11/22/17 10:24 11/22/17 07:59 11/22/17 10:24 11/22/17 04:01 Plan Activity: no restrictions Weight Bearing Status: Full Weight Bearing Diet: low cholesterol, low salt Additional Instructions: follow @[facility] in 1-2 weeks Follow up with: ABENA SCHUSTER MD [Primary Care Provider] - 7 Days Prescriptions: Levofloxacin [Levaquin] 750 mg PO QDAY #5 tablet
[2017-11-22 13:48] VITALS: BP 141/65
== END 2017-11-22 15:15 | disposition home or self-care (01) | DRG 871 ==
LOC: ED 21:25 → 2B-ACE 11-18 05:37
PROVIDERS: ADMIT Internal Medicine; ATTEND Internal Medicine
DX: A41.9 Sepsis, unspecified organism (principal); J18.9 Pneumonia, unspecified organism; J96.20 Acute and chronic respiratory failure, unspecified whether with hypoxia or hypercapnia; J44.1 Chronic obstructive pulmonary disease with (acute) exacerbation; J44.0 Chronic obstructive pulmonary disease with (acute) lower respiratory infection; I50.9 Heart failure, unspecified; I11.0 Hypertensive heart disease with heart failure; K59.00 Constipation, unspecified; E66.9 Obesity, unspecified; Z68.37 Body mass index [BMI] 37.0-37.9, adult; Z79.01 Long term (current) use of anticoagulants
CPT/HCPCS: 36415; 71045; 71275; 74018; 74022; 74177; 80053; 81001; 82140; 82550; 82553; 82805; 83880; 84484; 85025; 85610; 86850; 86900; 86901; 87040; 87086; 93005; 93010; 94640; 94760; 96365; 96375; A9270-GY; G8978-GP; G8980-GP; J0456; J0696; J1650; J1885; J3475; J7030; J7042; J7050; Q9967